=== PATIENT | male | born 1995 | race Caucasian/White ===

== ENCOUNTER 2021-10-20 08:30 | Outpatient (AMB) | payer MEDICAID, SELFPAY ==
--- NOTE | 2021-10-20 09:35 | RT.TREATMENT ---
Office Procedures RT Procedures Procedures EEG Extended Monitoring Awake/Drowsy: Yes
== END 2021-10-20 09:35 | disposition home or self-care (01) ==
LOC: HODRTX 08:30
PROVIDERS: PCP Nurse Practitioner Family; Visit Provider Nurse Practitioner Family
DX: I10 Essential (primary) hypertension (principal)